=== PATIENT | male | born 1950 | race Asian ===

== ENCOUNTER 2021-08-01 22:48 | Emergency (ER) | payer SELFPAY ==
[~2021-08-01] VITALS: Ht 175.3 cm; Wt 58.1 kg
--- NOTE | 2021-08-01 22:50 | NUR ---
ER Dr. CALDERON at bedside examining patient.
--- NOTE | 2021-08-01 22:54 | NUR ---
Patient to ER bed H1 to gown for evaluation. Side rails up.
[2021-08-01 22:55] VITALS: BP_SYST 112
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
--- NOTE | 2021-08-01 23:23 | NUR ---
pt discharged into Police custody. Ok to book form completed by officer and md. Pt cleared.
== END 2021-08-01 23:24 ==
LOC: SED 22:48
DX: F10.129 Alcohol abuse with intoxication, unspecified (principal); Z20.822 Contact with and (suspected) exposure to COVID-19; Y90.0 Blood alcohol level of less than 20 mg/100 ml
CPT/HCPCS: 36415; 99283